=== PATIENT | female | born 1970 | race Hispanic/Latino ===

== ENCOUNTER 2018-08-02 20:45 | Emergency (ER) | payer OTHER ==
[2018-08-02] MEDS ORDERED: IBUPROFEN 600 MG TABLET ONE (21:32)
[2018-08-02] MEDS ORDERED: DIAZEPAM 5 MG TABLET ONE (21:32)
== END 2018-08-02 23:58 | disposition home or self-care (01) ==
LOC: EDH 20:45
DX: S16.1XXA Strain of muscle, fascia and tendon at neck level, initial encounter (principal); S86.811A Strain of other muscle(s) and tendon(s) at lower leg level, right leg, initial encounter; S40.011A Contusion of right shoulder, initial encounter; Z88.1 Allergy status to other antibiotic agents; W01.0XXA Fall on same level from slipping, tripping and stumbling without subsequent striking against object, initial encounter; Y93.89 Activity, other specified; Y92.89 Other specified places as the place of occurrence of the external cause; Y99.8 Other external cause status
CPT/HCPCS: 73030